=== PATIENT | female | born 1960 | race Caucasian/White ===

== ENCOUNTER 2018-09-06 19:39 | Emergency (ER) | payer BC ==
--- NOTE | 2018-09-06 22:10 | ED ---
General Adult HPI - General Source: patient Mode of arrival: ambulatory Limitations: no limitations <Joe Hebert - Last Filed: 09/06/18 23:26> <Jennifer Self P - Last Filed: 09/07/18 07:52> - General Chief complaint: Recheck/Abnormal Lab/Rx Stated complaint: Hypertension Time Seen by Provider: 09/06/18 20:57 - History of Present Illness Initial comments: Patient is a 57-year-old female presenting to emergency Department after elevated high blood pressure and urgency care. Patient reports she has been feeling "hot" for the past week so she went to an urgent care to get examined. Patient reports that he take elevated blood pressure as high as 180/96. Patient reports at the urgent care they obtained an EKG and suggested she visit the emergency department. Patient reports she was given medication to decrease the blood pressure at the urgent care but doesn't know the name or dose. Patient reports she is unable to contact them because the urgent care closed after they arrived to the emergency department. Patient denies headache, dizziness lightheadedness, nausea, vomiting, diarrhea. Patient denies palpitations, chest pain, chest tightness, shortness of breath. Patient denies any fever or blurry vision. Patient denies any abdominal pain, urinary or vaginal symptoms. Patient reports did not want to come to the emergency room and feels "fine." Patient denies taking any medication to alleviate the pain. (Joe Hebert) - Related Data Home Medications Medication Instructions Recorded Confirmed Omeprazole 20 mg PO DAILY 09/06/18 09/06/18 Previous Rx's Medication Instructions Recorded Nitrofurantoin Monohyd/M-Cryst 100 mg PO Q12HR #14 cap 09/06/18 [Macrobid] Allergies Allergy/AdvReac Type Severity Reaction Status Date / Time No Known Allergies Allergy Verified 09/06/18 20:09 Review of Systems ROS Other: All systems not noted in ROS Statement are negative. <Joe Hebert - Last Filed: 09/06/18 23:26> ROS Other: All systems not noted in ROS Statement are negative. <Jennifer Self P - Last Filed: 09/07/18 07:52> ROS Statement: Those systems with pertinent positive or pertinent negative responses have been documented in the HPI. Past Medical History Past Medical History: No Reported History History of Any Multi-Drug Resistant Organisms: None Reported Past Surgical History: No Surgical Hx Reported Past Psychological History: No Psychological Hx Reported Smoking Status: Current every day smoker Past Alcohol Use History: Rare <Joe Hebert - Last Filed: 09/06/18 23:26> General Exam Limitations: no limitations General appearance: alert, in no apparent distress Head exam: Present: atraumatic, normocephalic, normal inspection Eye exam: Present: normal appearance, PERRL, EOMI Pupils: Present: normal accommodation ENT exam: Present: normal exam, normal oropharynx, mucous membranes moist, TM's normal bilaterally Respiratory exam: Present: normal lung sounds bilaterally. Absent: respiratory distress, wheezes, rales, rhonchi, stridor Cardiovascular Exam: Present: regular rate, normal rhythm, normal heart sounds. Absent: bradycardia, systolic murmur Neurological exam: Present: alert, oriented X3 Psychiatric exam: Present: normal affect, normal mood Skin exam: Present: warm, normal color <Joe Hebert - Last Filed: 09/06/18 23:26> Course Vital Signs 09/06/18 09/06/18 09/06/18 20:05 21:16 22:04 Temperature 98.3 F Pulse Rate 96 Respiratory 20 Rate Blood Pressure 162/79 174/97 155/94 O2 Sat by Pulse 97 Oximetry 09/06/18 09/06/18 22:30 23:21 Temperature 98.1 F Pulse Rate 86 86 Respiratory 18 18 Rate Blood Pressure 149/81 141/83 O2 Sat by Pulse 96 95 Oximetry EKG Findings - EKG Comments: EKG Findings:: Normal sinus rhythm, incomplete right bundle-branch block. Borderline EKG. Ventricular rate 85, [place] interval 162, QRS duration 98, QT/QTc 398/473, PareT axes 56 77 54 <Joe Hebert Last Filed: 09/06/18 23:26> Medical Decision Making - Lab Data Result diagrams: 09/06/18 22:20 09/06/18 22:20 <Joe Hebert Last Filed: 09/06/18 23:26> - Lab Data Result diagrams: 09/06/18 22:20 09/06/18 22:20 <Jennifer Self - Last Filed: 09/07/18 07:52> - Medical Decision Making Patient is a 57-year-old female presenting to emergency Department after elevated blood pressure at the urgent care. CBC, CMP, UA, troponins, EKG were obtained. UA is positive for a mild UTI. Patient will be treated for UTI with Macrobid. Rest of the labs are unremarkable. Patient advised to follow up with primary care. Patient reports she is feeling well and is ready to go home. Patient advised to return to emergency department if symptoms worsen. Case discussed a physician. (Joe Hebert) I was available for consultation in the emergency department. The history and physical exam were done by the midlevel provider. I was consulted for this patient's care. I reviewed the case with the midlevel provider and based on their presentation of the patient, I agree with the assessment, medical decision making and plan of care as documented. Chart was dictated using [employer] dictation software. Attempts were made to correct any dictation errors however some typographical errors may persist. (Jennifer Self) - Lab Data Lab Results 09/06/18 09/06/18 09/06/18 Range/Units 22:20 22:20 22:20 WBC 7.7 (3.8-10.6) k/uL RBC 5.15 (3.80-5.40) m/uL Hgb 15.1 (11.4-16.0) gm/dL Hct 47.0 H (34.0-46.0) % MCV 91.2 (80.0-100.0) fL MCH 29.3 (25.0-35.0) pg MCHC 32.1 (31.0-37.0) g/dL RDW 12.9 (11.5-15.5) % Plt Count 373 (150-450) k/uL Neutrophils % 48 % Lymphocytes % 41 % Monocytes % 5 % Eosinophils % 4 % Basophils % 0 % Neutrophils # 3.7 (1.3-7.7) k/uL Lymphocytes # 3.2 (1.0-4.8) k/uL Monocytes # 0.4 (0-1.0) k/uL Eosinophils # 0.3 (0-0.7) k/uL Basophils # 0.0 (0-0.2) k/uL Sodium (137-145) mmol/L Potassium (3.5-5.1) mmol/L Chloride (98-107) mmol/L Carbon Dioxide (22-30) mmol/L Anion Gap mmol/L BUN (7-17) mg/dL Creatinine (0.52-1.04) mg/dL Est GFR (CKD-EPI)AfAm (>60 ml/min/1.73 sqM) Est GFR (CKD-EPI)NonAf (>60 ml/min/1.73 sqM) Glucose (74-99) mg/dL Calcium (8.4-10.2) mg/dL Total Bilirubin (0.2-1.3) mg/dL AST (14-36) U/L ALT (9-52) U/L Alkaline Phosphatase (38-126) U/L Troponin I <0.012 (0.000-0.034) ng/mL Total Protein (6.3-8.2) g/dL Albumin (3.5-5.0) g/dL Urine Color Yellow Urine Appearance Cloudy H (Clear) Urine pH 5.5 (5.0-8.0) Ur Specific [place] 1.033 (1.001-1.035) Urine Protein Trace H (Negative) Urine Glucose (UA) Negative (Negative) Urine Ketones Negative (Negative) Urine Blood Trace H (Negative) Urine Nitrite Negative (Negative) Urine Bilirubin Negative (Negative) Urine Urobilinogen <2.0 (<2.0) mg/dL Ur Leukocyte Esterase Large H (Negative) Urine RBC 6 H (0-5) /hpf Urine WBC 164 H (0-5) /hpf Ur Squamous Epith Cells 2 (0-4) /hpf Urine Bacteria Occasional H (None) /hpf Urine Mucus Rare H (None) /hpf 09/06/18 Range/Units 22:20 WBC (3.8-10.6) k/uL RBC (3.80-5.40) m/uL Hgb (11.4-16.0) gm/dL Hct (34.0-46.0) % MCV (80.0-100.0) fL MCH (25.0-35.0) pg MCHC (31.0-37.0) g/dL RDW (11.5-15.5) % Plt Count (150-450) k/uL Neutrophils % % Lymphocytes % % Monocytes % % Eosinophils % % Basophils % % Neutrophils # (1.3-7.7) k/uL Lymphocytes # (1.0-4.8) k/uL Monocytes # (0-1.0) k/uL Eosinophils # (0-0.7) k/uL Basophils # (0-0.2) k/uL Sodium 143 (137-145) mmol/L Potassium 3.8 (3.5-5.1) mmol/L Chloride 108 H (98-107) mmol/L Carbon Dioxide 28 (22-30) mmol/L Anion Gap 7 mmol/L BUN 18 H (7-17) mg/dL Creatinine 0.73 (0.52-1.04) mg/dL Est GFR (CKD-EPI)AfAm >90 (>60 ml/min/1.73 sqM) Est GFR (CKD-EPI)NonAf >90 (>60 ml/min/1.73 sqM) Glucose 99 (74-99) mg/dL Calcium 9.9 (8.4-10.2) mg/dL Total Bilirubin 0.3 (0.2-1.3) mg/dL AST 22 (14-36) U/L ALT 24 (9-52) U/L Alkaline Phosphatase 71 (38-126) U/L Troponin I (0.000-0.034) ng/mL Total Protein 6.7 (6.3-8.2) g/dL Albumin 4.4 (3.5-5.0) g/dL Urine Color Urine Appearance (Clear) Urine pH (5.0-8.0) Ur Specific [place] (1.001-1.035) Urine Protein (Negative) Urine Glucose (UA) (Negative) Urine Ketones (Negative) Urine Blood (Negative) Urine Nitrite (Negative) Urine Bilirubin (Negative) Urine Urobilinogen (<2.0) mg/dL Ur Leukocyte Esterase (Negative) Urine RBC (0-5) /hpf Urine WBC (0-5) /hpf Ur Squamous Epith Cells (0-4) /hpf Urine Bacteria (None) /hpf Urine Mucus (None) /hpf Disposition Is patient prescribed a controlled substance at d/c from ED?: No Time of Disposition: 23:28 <Joe Hebert - Last Filed: 09/06/18 23:26> <Jennifer Self - Last Filed: 09/07/18 07:52> Clinical Impression: UTI (urinary tract infection) Disposition: HOME SELF-CARE Condition: Stable Instructions (If sedation given, give patient instructions): Urinary Tract Infection in Women (DC), Hypertension (ED) Additional Instructions: Please take prescribed medication as directed. Please follow up with primary care. Please return to emergency department if symptoms worsen. Prescriptions: Nitrofurantoin Monohyd/M-Cryst [Macrobid] 100 mg PO Q12HR #14 cap Referrals: Reno Woodruff MD [Primary Care Provider] - 1-2 days
[2018-09-06 22:34] LABS: Basophils % (A) 0 %; Eosinophils # (A) 0.3 k/uL (0-0.7); Eosinophils % (A) 4 %; HGB 15.1 gm/dL (11.4-16.0); Lymphocytes # (A) 3.2 k/uL (1.0-4.8); Lymphocytes % (A) 41 %; MCH 29.3 pg (25.0-35.0); MCHC 32.1 g/dL (31.0-37.0); MCV 91.2 fL (80.0-100.0); Mean Platelet Volume 6.3; Monocytes # (A) 0.4 k/uL (0-1.0); Monocytes % (A) 5 %; Neutrophils # (A) 3.7 k/uL (1.3-7.7); Neutrophils % (A) 48 %; Platelet Count 373 k/uL (150-450); RBC 5.15 m/uL (3.80-5.40); RDW 12.9 % (11.5-15.5); WBC 7.7 k/uL (3.8-10.6)
[2018-09-06 22:38] LABS: Appearance,Urine Cloudy (Clear); Bacteria,Urine Occasional /hpf; Bilirubin,Urine Negative (Negative); Blood,Urine Trace (Negative); Color,Urine Yellow; Glucose,Urine (UA) Negative (Negative); Ketones,Urine Negative (Negative); Leukocyte Esterase,Urine Large (Negative); Mucus,Urine Rare /hpf; Nitrite,Urine Negative (Negative); PH, Urine 5.5 (5.0-8.0); Protein,Urine Trace (Negative); RBC,Urine 6 /hpf (0-5); Specific Gravity,Urine 1.033 (1.001-1.035); Squamous Epithelial Cell,Urine 2 /hpf (0-4); Urobilinogen,Urine <2.0 mg/dL (<2.0); WBC,Urine 164 /hpf (0-5)
[2018-09-06 22:51] LABS: ALT 24 U/L (9-52); AST 22 U/L (14-36); Albumin 4.4 g/dL (3.5-5.0); Alkaline Phosphatase 71 U/L (38-126); Anion Gap 7 mmol/L; Blood Urea Nitrogen 18 mg/dL (7-17); Calcium 9.9 mg/dL (8.4-10.2); Carbon Dioxide 28 mmol/L (22-30); Chloride 108 mmol/L (98-107); Glucose 99 mg/dL (74-99); Potassium 3.8 mmol/L (3.5-5.1); Sodium 143 mmol/L (137-145); Total Bilirubin 0.3 mg/dL (0.2-1.3); Total Protein 6.7 g/dL (6.3-8.2)
[2018-09-06 23:22] VITALS: BP 141/83; PULSE 86; RESP 18; TEMP 98.1
== END 2018-09-06 23:57 | disposition home or self-care (01) ==
LOC: EC 19:39
DX: N39.0 Urinary tract infection, site not specified (principal); F17.200 Nicotine dependence, unspecified, uncomplicated; Z79.899 Other long term (current) drug therapy
CPT/HCPCS: 36415; 80053; 81001; 84484; 85025; 87086; 93005; 99283

== ENCOUNTER → 2018-09-14 | Outpatient (CLI) | payer BC ==
--- NOTE | 2018-09-14 11:26 | CT ---
EXAMINATION TYPE: CT abdomen pelvis wo con DATE OF EXAM: 09/14/2018 COMPARISON: None INDICATION: Right upper quadrant flank pain. DLP: 274.9 mGycm, Automated exposure control for dose reduction was used. CONTRAST: Oral mL of Isovue 300. Study performed without Oral Contrast TECHNIQUE: Axial images were obtained from above the diaphragm to the pubic rami in the axial plane a t 5 mm thick sections. Reconstructed images are reviewed on the computer in the coronal plane. FINDINGS: Limited CT sections are obtained the lung bases. The lung bases are clear. CT ABDOMEN: Liver: Normal Spleen: Normal Pancreas: Normal Adrenal glands: Left adrenal gland is slightly prominent at 1.0 cm. Right adrenal gland appears oskar l Gallbladder: Normal Kidneys: No masses are evident. No hydronephrosis is present. No cysts are present. No renal stone s are evident. Aorta: Vascular calcification is within the aorta. Inferior vena cava: Normal. CT PELVIS: Loops of bowel within the abdomen and pelvis are normal. Study is performed without oral contrast causing some limitation. Scattered diverticuli are within the sigmoid colon. Appendix: Normal as visualized. Urinary bladder: Normal. Genitourinary structures: Uterus is unremarkable. Adnexal regions are normal. Osseous structures: No suspicious lytic or sclerotic lesions. Iliac joint vacuum phenomenon is presen t. Mild facet degenerative changes are within the lower lumbar spine. IMPRESSIONS: 1. Diverticulosis without acute diverticulitis. 2. No renal stones hydronephrosis or hydroureter is evident. 3. Mild prominence of the left adrenal gland
== END | disposition home or self-care (01) ==
LOC: RADCTMAIN 10:58
PROVIDERS: ATTEND Family Medicine
DX: K57.30 Diverticulosis of large intestine without perforation or abscess without bleeding (principal); E27.9 Disorder of adrenal gland, unspecified
CPT/HCPCS: 74176

== ENCOUNTER → 2018-09-28 | Outpatient (CLI) | payer BC ==
--- NOTE | 2018-09-28 09:22 | US ---
EXAMINATION TYPE: US renal artery duplex complet DATE OF EXAM: 09/28/2018 COMPARISON: CT CLINICAL HISTORY: I10. Benign hypertension. Pt states recent spike in blood pressure x 1 month MEASUREMENTS: RENAL SIZE: Rt Kidney: 10.9 x 4.3 x 4.5 cm Lt Kidney: 11.7 x 4.9 x 5.0 cm RESISTANCE INDEX Right: 0.7 Left: 0.6 RA/AO RATIO (< 3.5 ) Right: 3.3 Left: 1.3 RA VELOCITY ( < 180 cm/s) Right: 263.7 Left: 116.8 Elevated velocity right renal artery No hydronephrosis or nephrolithiasis is seen in the kidneys. No perinephric fluid collection is appar ent. Spectral broadening is seen on the right. Left waveforms are unremarkable. Moderate atherosclero sis of the abdominal aorta is noted. IMPRESSION: Findings indicative of the right renal arterial stenosis. No sonographic evidence of left renal arter ial stenosis.
== END | disposition home or self-care (01) ==
LOC: RADUSWWP 07:57
PROVIDERS: ATTEND Family Medicine
DX: I70.1 Atherosclerosis of renal artery (principal)
CPT/HCPCS: 93975

== ENCOUNTER → 2018-10-13 | Outpatient (CLI) | payer BC ==
--- NOTE | 2018-10-13 14:02 | US ---
EXAMINATION TYPE: US carotid duplex BILAT DATE OF EXAM: 10/13/2018 COMPARISON: NONE CLINICAL HISTORY: R51 Headache. EXAM MEASUREMENTS: RIGHT: Peak Systolic Velocity (PSV) cm/sec ----- Right CCA: 74.8 ----- Right ICA: 88.5 ----- Right ECA: 86.7 ICA/CCA ratio: 1.2 RIGHT: End Diastole cm/sec ----- Right CCA: 20.8 ----- Right ICA: 40.4 ----- Right ECA: 14.8 LEFT: Peak Systolic Velocity (PSV) cm/sec ----- Left CCA: 78.4 ----- Left ICA: 118.0 ----- Left ECA: 99.4 ICA/CCA ratio: 1.5 LEFT: End Diastole cm/sec ----- Left CCA: 22.8 ----- Left ICA: 52.2 ----- Left ECA: 12.4 VERTEBRALS (direction of flow): Right Vertebral: Antegrade Left Vertebral: Antegrade Rhythm: Normal Mild amount of plaque visualized. No elevated velocities, no significant stenosis. IMPRESSION: Mild degree of grayscale atheromatous plaquing with no sonographically evident hemodynam ically significant stenosis within either visualized carotid arterial system. Criteria for Assigning % of Stenosis / Diameter reduction (Estimation based on the indirect measurements of the internal carotid artery velocities (ICA PSV). 1. Normal (no stenosis)=ICA PSV < 125 cm/s: ratio < 2.0: ICA EDV<40 cm/s. 2. Less than 50% stenosis=ICA PSV < 125 cm/s: ratio < 2.0: ICA EDV<40 cm/s. 3. 50 to 69% stenosis=ICA PSV of 125 to 230 cm/s: ration 2.0 ? 4.0: ICA EDV 40-100 cm/s. 4. Greater than 70% stenosis to near occlusion= ICA PSV > 230 cm/s: ratio > 4.0: ICA EDV > 100 cm/s. 5. Near occlusion= ICA PSV velocities may be low or undetectable: variable ratio and ICA EDV. 6. Total occlusion=unable to detect flow.
== END | disposition home or self-care (01) ==
LOC: RADUSWWP 12:57
PROVIDERS: ATTEND Family Medicine
DX: I65.23 Occlusion and stenosis of bilateral carotid arteries (principal); R51 Headache
CPT/HCPCS: 93880

== ENCOUNTER → 2018-10-18 | Outpatient (CLI) | payer BC ==
[~2018-10-18] MED LIST: DOBUTamine DRIP for NUC MED 500 MG in DEXTROSE/WATER 1 250ML.BAG IV ONE
--- NOTE | 2018-10-18 13:54 | ECHOS ---
STRESS ECHOCARDIOGRAM INDICATIONS: Chest pain, palpitations. MEDICATIONS: Lisinopril, aspirin, Chantix BASELINE HEART RATE: 66 BASELINE BLOOD PRESSURE: 188/89 MAXIMUM HEART RATE: 140 MAXIMUM BLOOD PRESSURE: 170/66 85% MPHR: 139 100% MPHR: 163 MAXIMUM STAGE REACHED: 4 TOTAL EXERCISE TIME: 13:07 CLINICAL INFORMATION: Patient was given dobutamine infusion according to the standard protocol. Peak heart rate of 140, was achieved. Maximum blood pressure of 170/66 mmHg was noted. Resting EKG shows normal sinus rhythm with normal VT interval and QRS duration and normal ST-T waves. No ST-segment depression suggestive of ischemia is noted. Occasional PVCs were noted. The baseline echocardiographic images reveals normal left ventricular chamber size with normal left ventricular systolic function. At the peak dose of dobutamine infusion, normal increase in the wall thickness and contractility is noted. FINAL IMPRESSION: 1. This dobutamine stress echocardiographic study is negative for stress-induced ischemia. 2. EKG portion of the stress test not suggestive of ischemia. 3. Occasional premature ventriculare contractions were noted. MMODL / IJN: [id number] /
--- NOTE | 2018-11-01 13:26 | ECHOF ---
Referral Reason:R00.2 palpitations MEASUREMENTS -------- HEIGHT: 165.1 cm WEIGHT: 63.5 kg BP: 188/89 RVIDd: 3.3 cm (< 3.3) IVSd: 1.3 cm (0.6 - 1.1) LVIDd: 4.3 cm (3.9 - 5.3) LVPWd: 1.2 cm (0.6 - 1.1) IVSs: 1.8 cm LVIDs: 2.4 cm LVPWs: 1.9 cm LAESV Index (A-L): 26.51 ml/m Ao Diam: 2.9 cm (2.0 - 3.7) AV Cusp: 2.0 cm (1.5 - 2.6) EPSS: 0.6 cm MV E Cullen: 0.79 m/s MV DecT: 219 ms MV A Cullen: 0.74 m/s MV E/A Ratio: 1.06 RAP: 5.00 mmHg RVSP: 27.68 mmHg MV EF SLOPE: 140.67 mm/s (70 - 150) MV EXCURSION: 1.41 cm (> 18.000) FINDINGS -------- Sinus rhythm. This was a technically good study. The left ventricular size is normal. There is mild concentric left ventricular hypertrophy. There is normal global left ventricular contractility. Overall left ventricular systolic function is nor mal with, an EF between 55 - 60 %. The diastolic filling pattern is normal for the age of the patie nt. The right ventricle is normal in size. Left atrium is normal size by volume. The right atrial size is normal. Interatrial and interventricular septum intact. The aortic valve is trileaflet and appears structurally normal. There is no evidence of aortic regu rgitation. There is no evidence of aortic stenosis. Mild mitral annular calcification present. Mild mitral regurgitation is present. Mild tricuspid regurgitation present. There is no evidence of pulmonary hypertension. The right v entricular systolic pressure, as measured by Doppler, is 27.68mmHg. The pulmonic valve is normal. The aortic root size is normal. The inferior vena cava was not well visualized. There is no pericardial effusion. CONCLUSIONS -------- 1. Sinus rhythm. 2. This was a technically good study. 3. The left ventricular size is normal. 4. There is mild concentric left ventricular hypertrophy. 5. There is normal global left ventricular contractility. 6. Overall left ventricular systolic function is normal with, an EF between 55 - 60 %. 7. The diastolic filling pattern is normal for the age of the patient. 8. The right ventricle is normal in size. 9. Left atrium is normal size by volume. 10. The right atrial size is normal. 11. Interatrial and interventricular septum intact. 12. The aortic valve is trileaflet and appears structurally normal. 13. There is no evidence of aortic regurgitation. 14. There is no evidence of aortic stenosis. 15. Mild mitral annular calcification present. 16. Mild mitral regurgitation is present. 17. Mild tricuspid regurgitation present. 18. There is no evidence of pulmonary hypertension. 19. The right ventricular systolic pressure, as measured by Doppler, is 27.68mmHg. 20. The pulmonic valve is normal. 21. The aortic root size is normal. 22. The inferior vena cava was not well visualized. 23. There is no pericardial effusion. FIREFIGHTING EQUIPMENT SPECIALIST: Lilian Sexton RDCS
== END | disposition home or self-care (01) ==
LOC: RADECHMAIN 09:50
PROVIDERS: ATTEND Family Medicine
DX: I08.1 Rheumatic disorders of both mitral and tricuspid valves (principal)
CPT/HCPCS: 93306; 93351; J1250

== ENCOUNTER → 2018-11-24 | Outpatient (CLI) | payer BC ==
[2018-11-24 10:55] LABS: HCT 46.1 % (34.0-46.0); HGB 14.9 gm/dL (11.4-16.0); MCH 29.9 pg (25.0-35.0); MCHC 32.3 g/dL (31.0-37.0); MCV 92.7 fL (80.0-100.0); Mean Platelet Volume 6.5; Platelet Count 343 k/uL (150-450); RBC 4.97 m/uL (3.80-5.40); RDW 13.5 % (11.5-15.5); WBC 9.7 k/uL (3.8-10.6)
[2018-11-24 11:10] LABS: African American GFR (CKD) >90 (>60 ml/min/1.73 sqM); Anion Gap 7 mmol/L; Blood Urea Nitrogen 16 mg/dL (7-17); Carbon Dioxide 26 mmol/L (22-30); Chloride 108 mmol/L (98-107); Sodium 141 mmol/L (137-145)
== END | disposition home or self-care (01) ==
LOC: LABWHC1 10:07
PROVIDERS: ATTEND Internal Medicine Interventional Cardiology
DX: Z01.812 Encounter for preprocedural laboratory examination (principal); I70.1 Atherosclerosis of renal artery
CPT/HCPCS: 36415; 80051; 82565; 84520; 85027

== ENCOUNTER 2018-12-13 06:17 | Day surgery (SDC) | payer BC ==
[2018-12-06 12:16] VITALS: BMI 25.0
[2018-12-13] MEDS ORDERED: SODIUM CHLORIDE 0.9% 1,000 ML IV ONE (06:45)
[2018-12-13 07:26] VITALS: PULSE 60; TEMP 98
[2018-12-13] MEDS: MIDAZOLAM (PF) 2 MG/2 ML VIAL IV ONE ×2 (07:52→08:02)
[2018-12-13] MEDS ORDERED: LIDOCAINE 1% INJ 10MG/ML (20 ML MDV) SQ ONE (07:53)
[2018-12-13] MEDS ORDERED: HYDROmorphone 1 MG/ML 1 ML SYRINGE IVP ONE (08:02)
[2018-12-13] MEDS ORDERED: IOPAMIDOL-250 100ML BTL INTRAARTER ONE (08:05)
[2018-12-13] MEDS ORDERED: SODIUM CHLORIDE 0.9% 1,000 ML IV SCH (08:15)
--- NOTE | 2018-12-13 08:30 | AN ---
ANGIOGRAPHY REPORT AORTOGRAM AND RENAL ARTERIES ANGIOGRAM: DATE OF SERVICE: 12/13/2018 PERFORMING PHYSICIAN: Scot Lott MD, Animal Pathology Teacher. PROCEDURE PERFORMED: 1. An aortogram. 2. Non selective renal arteries angiogram. INDICATION: This is a pleasant 57-year-old female patient with history of refractory hypertension who was sent by her primary care physician, Dr. Woodruff, for further evaluation of renal artery stenosis. She underwent an arterial duplex study and that revealed severe disease involving the right renal artery and she was brought today to undergo an aortogram and non-selective renal arteries angiogram. APPROACH: Right common femoral artery. COMPLICATION: None. LEVEL OF SEDATION: Moderate with sedation length of 13 minutes. PROCEDURE DESCRIPTION: After obtaining an informed consent, the patient was brought to the cardiac director of labor relations. The right common femoral artery was cannulated using micropuncture technique, the micropuncture wire passed easily, then I placed a 4-Lithuanian sheath. I did an aortogram and non-selective renal arteries angiogram using the 4-Lithuanian pigtail catheter. The procedure was completed without any complication. SELECTIVE PERIPHERAL ANGIOGRAM: 1. The aorta appeared to be angiographically normal without any evidence of dissection or aneurysmal dilatation. 2. Renal arteries and renal arteries the right and left renal arteries appeared to be angiographically normal. CONCLUSION: 1. Normal renal arteries. POSTPROCEDURE MANAGEMENT: 1. Medical treatment. 2. Follow up with the patient. MMODL / IJN: [id number] /
--- NOTE | 2018-12-13 09:42 | IR ---
EXAMINATION TYPE: IR angio abdominal w runoff DATE OF EXAM: 12/13/2018 COMPARISON: NONE HISTORY: Fluoroscopy time. Fluoroscopy was provided to the referring clinician. 1.3 minutes of fluoroscopy provided.
[2018-12-13 10:18] VITALS: RESP 18
[2018-12-13] MEDS ORDERED: ACETAMINOPHEN TAB 325 MG TAB PO STA (11:21)
[2018-12-13 14:13] VITALS: BP 123/66
== END 2018-12-13 13:30 | disposition home or self-care (01) ==
LOC: CATHCVL 06:17
PROVIDERS: ATTEND Internal Medicine Interventional Cardiology
DX: I70.1 Atherosclerosis of renal artery (principal); I10 Essential (primary) hypertension; F17.210 Nicotine dependence, cigarettes, uncomplicated; Z79.82 Long term (current) use of aspirin; Z79.899 Other long term (current) drug therapy; Z71.6 Tobacco abuse counseling; Z82.49 Family history of ischemic heart disease and other diseases of the circulatory system
CPT/HCPCS: 36200; 75625; 81025; C1769 ×2; J2001; J1170; Q9966; J2250

== ENCOUNTER → 2021-11-10 | Outpatient (CLI) | payer BC ==
--- NOTE | 2021-11-10 13:14 | XR ---
EXAMINATION TYPE: XR lumbar spine 2 or 3V DATE OF EXAM: 11/10/2021 COMPARISON: None HISTORY: Low back pain TECHNIQUE: 3 view lumbar spine FINDINGS: There are 5 lumbar-type vertebral bodies. The pedicles are intact. Posterior disc space renard rowing is present L3-4 L4-5. There may be some minimal retrolisthesis of L2 posteriorly on L3. Alignm ent is otherwise preserved. Vertebral body heights are preserved. Minimal vascular calcification with in the distal aorta is present. IMPRESSION: 1. Mild degenerative disc changes lower lumbar spine. MRI could be performed if additional evaluatio n would be of benefit. 2. Grade 1 retrolisthesis of L2 on L3.
== END | disposition home or self-care (01) ==
LOC: RADXRMAIN 12:48
PROVIDERS: ATTEND Family Medicine
DX: M51.36 Other intervertebral disc degeneration, lumbar region (principal); M48.061 Spinal stenosis, lumbar region without neurogenic claudication
CPT/HCPCS: 72100

== ENCOUNTER → 2021-11-11 | Outpatient (CLI) | payer BC ==
[2021-11-11 14:16] LABS: Basophils # (A) 0.06 X 10*3/uL (0.00-0.10); Basophils % (A) 0.6 %; Eosinophils # (A) 0.14 X 10*3/uL (0.04-0.35); Eosinophils % (A) 1.4 %; HCT 49.3 % (37.2-46.3); HGB 15.3 g/dL (12.0-15.0); Immature Grans, Automated 0.4 %; Lymphocytes # (A) 2.86 X 10*3/uL (0.90-5.00); MCH 29.1 pg (27.0-32.0); MCV 93.9 fL (80.0-97.0); Mean Platelet Volume 9.6 fL (9.5-12.2); Monocytes # (A) 0.75 X 10*3/uL (0.20-1.00); Monocytes % (A) 7.3 %; NRBC Per 100 WBC 0 /100 WBCS (0.0-0.0); Neutrophils # (A) 6.37 X 10*3/uL (1.80-7.70); Neutrophils % (A) 62.3 %; Platelet Count 331 X 10*3/uL (140-440); RBC 5.25 X 10*6/uL (4.10-5.20); RDW 13.2 % (11.5-14.5); WBC 10.22 X 10*3/uL (4.50-10.00)
[2021-11-11 14:28] LABS: ALT 26 U/L (8-44); AST 20 U/L (13-35); African American GFR (CKD) 104.6 (60.0-200.0); Albumin 4.5 g/dL (3.8-4.9); Albumin/Globulin Ratio 1.91 (1.60-3.17); Alkaline Phosphatase 87 U/L (41-126); BUN/Creat Ratio 19.86 Ratio (12.00-20.00); Blood Urea Nitrogen 14.4 mg/dL (9.0-27.0); Calcium 9.4 mg/dL (8.7-10.3); Carbon Dioxide 25.2 mmol/L (20.0-27.5); Chloride 107 mmol/L (96-109); Chol/HDL Ratio 2.61 Ratio; Globulin 2.3 g/dL (1.6-3.3); Glucose 95 mg/dL (70-110); Non-African American GFR(CKD) 90.3 (60.0-200.0); Potassium 4.6 mmol/L (3.5-5.5); Sodium 144 mmol/L (135-145); Total Protein 6.8 g/dL (6.2-8.2); VLDL Calculation 11.24 mg/dL (5.00-40.00)
[2021-11-11 18:16] LABS: Appearance,Urine Clear (Clear); Bilirubin,Urine Negative (Negative); Blood,Urine Negative (Negative); Color,Urine Yellow (Yellow); Ketones,Urine Negative (Negative); Nitrite,Urine Negative (Negative); Specific Gravity,Urine 1.023 (1.001-1.030); Urobilinogen,Urine 0.2 (0.2,1.0)
== END | disposition home or self-care (01) ==
LOC: LABWHC1 09:50
PROVIDERS: ATTEND Family Medicine
DX: Z00.00 Encounter for general adult medical examination without abnormal findings (principal); M54.50 Low back pain, unspecified; Z12.4 Encounter for screening for malignant neoplasm of cervix; Z12.11 Encounter for screening for malignant neoplasm of colon; R19.09 Other intra-abdominal and pelvic swelling, mass and lump; Z12.31 Encounter for screening mammogram for malignant neoplasm of breast
CPT/HCPCS: 36415; 80053; 80061; 81003; 85025

== ENCOUNTER 2024-08-03 23:03 | Inpatient (IN) | payer BC ==
[2024-08-03 23:34] LABS: Glucose,Whole Blood 132 mg/dL (70-110)
[2024-08-03 23:34] LABS: Basophils # (A) 0.03 10*3/uL (0.00-0.10); Basophils % (A) 0.4 %; Eosinophils % (A) 1.2 %; HCT 44.7 % (37.2-46.3); HGB 15.7 g/dL (12.0-15.0); Lymphocytes # (A) 2.85 10*3/uL (0.90-5.00); Lymphocytes % (A) 35.4 %; MCHC 35.1 g/dL (32.0-37.0); Mean Platelet Volume 9.7 fL (9.5-12.2); Monocytes # (A) 0.58 10*3/uL (0.20-1.00); Monocytes % (A) 7.2 %; Neutrophils # (A) 4.48 10*3/uL (1.80-7.70); Neutrophils % (A) 55.6 %; Platelet Count 253 10*3/uL (140-440); RBC 4.91 10*6/uL (4.10-5.20); RDW 12.7 % (11.5-14.5); WBC 8.06 10*3/uL (4.50-10.00)
[2024-08-04 00:11] LABS: INR 0.9 (<1.2); Prothrombin Time 10.3 sec (10.0-12.5)
--- NOTE | 2024-08-04 00:18 | CT ---
EXAM: CT Head Without Intravenous Contrast CLINICAL HISTORY: ITS.REASON CT Reason: Altered mental status TECHNIQUE: Axial computed tomography images of the head/brain without intravenous contrast. CTDI is 49.1 mGy and DLP is 1217.6 mGy-cm. This CT exam was performed using one or more of the following dose reduction techniques: automated exposure control, adjustment of the mA and/or kV according to patient size, and/or use of iterative reconstruction technique. COMPARISON: No relevant prior studies available. FINDINGS: No acute intracranial hemorrhage. No midline shift or mass effect. The territorial cerrato-white matter differentiation is maintained throughout. The ventricles and sulci are commensurate with age. The visualized orbits appear grossly unremarkable. The calvarium is intact. The visualized paranasal sinuses and mastoid air cells are grossly clear. IMPRESSION: No acute intracranial hemorrhage, midline shift, or mass effect.
[2024-08-04 00:22] LABS: Appearance,Urine Cloudy (Clear); Bilirubin,Urine Negative (Negative); Blood,Urine Trace (Negative); Color,Urine Yellow; Glucose,Urine (UA) Negative (Negative); Hyaline Casts,Urine 261 /lpf (0-2); Ketones,Urine Negative (Negative); Leukocyte Esterase,Urine Negative (Negative); Mucus,Urine Many /hpf; Nitrite,Urine Negative (Negative); PH, Urine 5.5 (5.0-8.0); Protein,Urine Trace (Negative); RBC,Urine 3 /hpf (0-5); Specific Gravity,Urine 1.027 (1.001-1.035); Squamous Epithelial Cell,Urine <1 /hpf (0-4); WBC,Urine 11 /hpf (0-5)
[2024-08-04 00:23] LABS: Amphetamine Screen,Urine Not Detected (NotDetected); Barbiturate Screen,Urine Not Detected (NotDetected); Benzodiazepines Screen,Urine Not Detected (NotDetected); Cocaine Screen,Urine Not Detected (NotDetected); Methadone Screen, Urine Not Detected (NotDetected); Opiate Screen,Urine Not Detected (NotDetected); Oxycodone Screen, Urine Not Detected (NotDetected); Phencyclidine Screen,Urine Not Detected (NotDetected); Tricyclic Antidepressant,Urine Not Detected (NotDetected); Urn Cannabinoid Scrn Not Detected (NotDetected)
[2024-08-04] MEDS: ONDANSETRON 4 MG/2 ML VIAL IVP STA (01:17)
[2024-08-04 01:41] LABS: ALT 44 U/L (4-34); AST 30 U/L (14-36); Acetaminophen <10.0 ug/mL; African American GFR (CKD) >90 (>60 ml/min/1.73 sqM); Albumin 3.9 g/dL (3.5-5.0); Alcohol <10 mg/dL; Alkaline Phosphatase 61 U/L (38-126); Anion Gap 7 mmol/L; Blood Urea Nitrogen 23 mg/dL (7-17); Calcium 9.5 mg/dL (8.4-10.2); Carbon Dioxide 23 mmol/L (22-30); Chloride 106 mmol/L (98-107); Glucose 120 mg/dL (74-99); Non-African American GFR(CKD) >90 (>60 ml/min/1.73 sqM); Potassium 4.3 mmol/L (3.5-5.1); Salicylate <1.0 mg/dL; Sodium 136 mmol/L (137-145); Total Bilirubin 0.7 mg/dL (0.2-1.3); Total Protein 5.9 g/dL (6.3-8.2)
--- NOTE | 2024-08-04 01:52 | XR ---
EXAM: XR Chest, 1 View CLINICAL HISTORY: ITS.REASON XR Reason: altered mental status TECHNIQUE: Frontal view of the chest. COMPARISON: No relevant prior studies available. FINDINGS: Lungs: Unremarkable. No consolidation. Pleural space: Unremarkable. No pneumothorax. Heart: Unremarkable. No cardiomegaly. Mediastinum: Unremarkable. Bones/joints: Unremarkable. IMPRESSION: No consolidation.
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
[2024-08-04] MEDS: SODIUM CHLORIDE 0.9% 1,000 ML IV ONE (02:40)
[2024-08-04] MEDS ORDERED: LORazepam 2 MG/ML INJ IM PRN (04:20)
[2024-08-04] MEDS ORDERED: MAGNESIUM HYDROXIDE 2,400 MG/30 ML CUP PO PRN (04:20)
[2024-08-04] MEDS ORDERED: haloperidoL 5 MG TAB PO PRN (04:20)
[2024-08-04] MEDS ORDERED: LORazepam 1 MG TAB PO PRN (04:20)
[2024-08-04] MEDS ORDERED: ACETAMINOPHEN TAB 325 MG TAB PO PRN (04:20)
[2024-08-04] MEDS ORDERED: HALOPERIDOL LACTATE 5 MG/ML 1 ML VIAL IM PRN (04:20)
[2024-08-04] MEDS ORDERED: MAG HYDROX/AL HYDROX/SIMETH 355 ML BOTTLE PO PRN (04:20)
[2024-08-04 05:05] LABS: Glucose,Whole Blood 124 mg/dL (70-110)
[2024-08-04] MEDS ORDERED: ONDANSETRON ODT 4 MG TAB PO PRN (06:05)
[2024-08-04] MEDS: NICOTINE 14MG/24HR PATCH TRANSDERM SCH (09:35)
[2024-08-04 11:13] VITALS: BMI 18.6
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
[2024-08-04] MEDS: ESCITALOPRAM 5 MG TAB PO STA (12:36)
[2024-08-04] MEDS: ASPIRIN 325 MG TAB PO SCH (12:36)
[2024-08-04] MEDS: MIRTAZAPINE 15 MG TAB PO SCH (22:03)
[2024-08-05] MEDS ORDERED: ESCITALOPRAM 10 MG TAB PO SCH (09:00)
[2024-08-05] MEDS: ESCITALOPRAM 5 MG TAB PO SCH (11:22)
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
[2024-08-06] MEDS: ESCITALOPRAM 10 MG TAB PO SCH (09:43)
[2024-08-06] MEDS: GABAPENTIN 100 MG CAP PO PRN (23:27)
--- NOTE | 2024-08-07 12:17 | P.PN ---
Progress Note - Text Progress Note Date: 08/07/24 Interval History: Patient was seen today for psychiatric follow-up, she was in her room today. She continues to be somewhat argumentative with film writer, continues to ask for clarity on her medications her "treatment" and also discharge planning. She remains fairly hesitant to sign release of information for the hospital social worker to speak with her . She has not been consistent with taking the Lexapro, also did not take the Remeron. Claims that the Remeron made her "dizzy" and does not want to take it any longer. She did appear to be suspicious again of film writer. Was agreeable to try the Lexapro at nighttime. Has been mainly keeping herself not participating in groups. Sleeping on and off at nighttime, claims that she takes naps. Was asking about adding Ensure to her diet and also fruit cups due to her gluten-free diet. At this time she is denying any suicidal homicidal ideations intent or plan denying any auditory visual hallucinations. MENTAL STATUS EXAM: General Appearance: Patient appears to be thin, older than stated age is alert, continues to be argumentative with film writer. Patient appears to have fair hygiene and grooming. Behavior: Patient is seated without any agitated behavior. She is irritable and argumentative with film writer, improving mildly Speech: Patient's speech is fluent and nonpressured. Irritable tone, improving mildly Mood/Affect: Patient reports their mood is "ok", affect is incongruent and constricted Suicidality/Homicidality: Patient denies having any homicidal ideation intent or plan. Denies any suicidal ideations intent or plan Perceptions: Patient denies any visual hallucinations and denies any auditory hallucinations Though content/process: There is no evidence of any delusional thought content and thought process is linear and goal-directed. Patient was rationalizing, minimizing her need for hospitalization Memory and concentration: AOX3, grossly intact for the purposes of this session Judgment and insight: Poor/superficial IMPRESSIONS: Depressive disorder unspecified suicide attempt by overdose on beta tasneem alcohol abuse nicotine dependence marital problems PLAN: -Patient is admitted under voluntary status to [facility] for stabilization of psychiatric symptoms and safety. Patient has signed adult voluntary form and has signed medication consent and is placed in patient's chart. -Medications : Change Lexapro 10 mg hs for mood/anxiety. Discontinue Remeron and replace with melatonin nightly as needed for insomnia -Ativan and Haldol PRN for agitation/aggression -NRT -nicotine patch -SW on board for discharge planning. Encourage patient to participate in groups to work on coping skills. hopeful for discharge in 2-3 days if patient is improving psychiatrically.
[2024-08-07] MEDS: ESCITALOPRAM 10 MG TAB PO SCH (20:10)
[2024-08-07] MEDS: MELATONIN 3 MG TABLET PO PRN (20:47)
[2024-08-08] MEDS: IBUPROFEN 600 MG TAB PO PRN (09:24)
--- NOTE | 2024-08-08 10:28 | P.PN ---
Progress Note - Text Progress Note Date: 08/08/24 Interval History: Patient was seen today for psychiatric follow-up, she was in her room today. She claims that she has been trying to go to more groups and participating more on the unit. Claims that she is now taking the Lexapro, claims that her mood and anxiety been mildly improving since yesterday. She claims that she feels unsure about where she will be leaving upon discharge and claims that she may go to her mother's house instead of back with her . She states that she has a lot of "issues" that I have to work out. She denied any side effects from medications. Claims that she wants to remain on the Neurontin for her neuropathic pain which is chronic. She was a bit emotional when speaking with show card writer about her plans for discharge. She appears to be less argumentative today less irritable with show card writer. Sleeping on and off at nighttime, improving mildly. Claims that she takes naps. At this time she is denying any suicidal homicidal ideations intent or plan denying any auditory visual hallucinations. MENTAL STATUS EXAM: General Appearance: Patient appears to be thin, older than stated age is alert, continues to be argumentative with show card writer. Patient appears to have fair hygiene and grooming. Behavior: Patient is seated without any agitated behavior. less irritable with show card writer, improving mildly, less argumentative Speech: Patient's speech is fluent and nonpressured. less Irritable tone, improving mildly Mood/Affect: Patient reports their mood is "a bit better", affect is incongruent and constricted Suicidality/Homicidality: Patient denies having any homicidal ideation intent or plan. Denies any suicidal ideations intent or plan Perceptions: Patient denies any visual hallucinations and denies any auditory hallucinations Though content/process: There is no evidence of any delusional thought content and thought process is linear and goal-directed. Patient was rationalizing, improving mildly Memory and concentration: AOX3, grossly intact for the purposes of this session Judgment and insight: Poor/superficial, improving mildly IMPRESSIONS: Depressive disorder unspecified suicide attempt by overdose on beta tasneem alcohol abuse nicotine dependence marital problems PLAN: -Patient is admitted under voluntary status to [facility] for stabilization of psychiatric symptoms and safety. Patient has signed adult voluntary form and has signed medication consent and is placed in patient's chart. -Medications : Lexapro 10 mg hs for mood/anxiety. melatonin nightly for insomnia. Continue with gabapentin 300 mg twice daily for mood stabilization/neuropathic pain. -Ativan and Haldol PRN for agitation/aggression -NRT -nicotine patch -SW on board for discharge planning. Encourage patient to participate in groups to work on coping skills. hopeful for discharge in 2-3 days if patient is improving psychiatrically. patient looking into possibly staying with her mother upon discharge
[2024-08-08] MEDS: GABAPENTIN 300 MG CAP PO SCH (13:30)
[2024-08-08] MEDS: MELATONIN 3 MG TABLET PO SCH (20:57)
[2024-08-09 09:38] VITALS: BP 116/65; PULSE 87; RESP 20; TEMP 97.1
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
== END 2024-08-09 13:20 | disposition home or self-care (01) | DRG 885 ==
LOC: EC 23:03 → 3MHU 08-04 04:16
PROVIDERS: ADMIT Psychiatry & Neurology Psychiatry; ATTEND Psychiatry & Neurology Psychiatry
DX: F33.2 Major depressive disorder, recurrent severe without psychotic features (principal); R64 Cachexia; F10.10 Alcohol abuse, uncomplicated; I10 Essential (primary) hypertension; Z68.1 Body mass index [BMI] 19.9 or less, adult; T44.7X2A Poisoning by beta-adrenoreceptor antagonists, intentional self-harm, initial encounter; F17.200 Nicotine dependence, unspecified, uncomplicated; F41.9 Anxiety disorder, unspecified; G47.00 Insomnia, unspecified; R73.9 Hyperglycemia, unspecified; F17.210 Nicotine dependence, cigarettes, uncomplicated; Z71.41 Alcohol abuse counseling and surveillance of alcoholic; Z63.0 Problems in relationship with spouse or partner; Z79.82 Long term (current) use of aspirin; Z79.899 Other long term (current) drug therapy; Z71.89 Other specified counseling
CPT/HCPCS: 36415; 51702; 70450; 71045; 80053; 80143; 80179; 80306; 80320; 81001; 82140; 83036; 84443; 84484; 85025; 85610; 85730; 87635; 93005; 96360; 96361; 99285

== ENCOUNTER → 2024-08-18 | Outpatient (CLI) | payer BC ==
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
== END | disposition home or self-care (01) ==
LOC: RADXRMAIN 11:38
PROVIDERS: ATTEND Internal Medicine
DX: J44.9 Chronic obstructive pulmonary disease, unspecified (principal)
CPT/HCPCS: 71046